=== PATIENT | male | born 1975 | race Caucasian/White ===

== ENCOUNTER 2017-02-21 17:52 | Emergency (ER) | payer SELFPAY ==
[~2017-02-21] VITALS: Ht 177.8 cm; Wt 93.6 kg
[~2017-02-21 17:52] MED LIST: MOTRIN600 MG PO
[2017-02-21 18:10] VITALS: BP 148/101
== END 2017-02-21 20:09 | disposition left against medical advice (07) ==
LOC: EME 17:52
DX: K08.9 Disorder of teeth and supporting structures, unspecified (principal); Z53.21 Procedure and treatment not carried out due to patient leaving prior to being seen by health care provider